=== PATIENT | female | born 1990 | race Caucasian/White ===

== ENCOUNTER 2019-04-10 21:49 | Emergency (ER) | payer OTHER ==
[~2019-04-10] VITALS: Ht 157.5 cm; Wt 59.9 kg
[2019-04-10 21:53] VITALS: BP 137/71
--- NOTE | 2019-04-10 21:56 | NUR ---
TO LOBBY A/W BED AMBULATORY
[2019-04-10 22:50] LABS: APPEARANCE,URINE CLEAR (CLEAR); BILIRUBIN,URINE NEGATIVE (NEGATIVE); BLOOD, URINE NEGATIVE (NEGATIVE); COLOR,URINE YELLOW (YELLOW); LEUKOCYTE ESTERASE ,URINE NEGATIVE (NEGATIVE); NITRITE, URINE NEGATIVE (NEGATIVE); UGLUCOSE NEGATIVE (NEGATIVE)
--- NOTE | 2019-04-10 22:52 | NUR ---
RETURNED FROM CT VIA WC TO LOBBY.
--- NOTE | 2019-04-10 23:03 | NUR ---
PT TAKEN TO BED 8
--- NOTE | 2019-04-10 23:03 | NUR ---
29 Y/O FEMALE BIB SELF RT FLANK PAIN, RADIATING TO HER ,NAUSEA FOR 3 DAYS. PAIN STARTS IN THE RIGHT UPPER BACK RADIATIN TO THE RIGHT FLANK TO THE RIGHT ABDOMINAL REGION. PALPATION IS TENDER TO TOUCH. FACIAL GRIMACING NOTED. BOWEL SOUNDS HEARD ON ALL FOUR QUADRANTS. PAIN IS A 6/10. PATIENT STATES," I WAS SEEN LAST WEEK HERE FOR GALLSTONES AND TOOK NORCO WITH SOME RELIEF." PATIENT IS ALSO AT THIS TIME. ERMD MADE AWARE OF STATUS. SIDE RAILSX1. WILL CONTINUE TO MONITOR. PMH: GALLSTONES RX: NORCO NKDA
[2019-04-10 23:49] LABS: BASOPHILS % (AUTO) 0.3 % (0.0-2.0); EOSINOPHILS # (AUTO) 0.2 K/uL (0-0.4); EOSINOPHILS % (AUTO) 2.9 % (0.0-4.0); HEMATOCRIT 44.7 % (36-48); HEMOGLOBIN 14.8 g/dL (12.0-16.0); LYMPHOCYTES % (AUTO) 32.6 % (20.5-51.1); MEAN CORPUSCULAR HEMOGLOBIN 31 pg (27-31); MEAN CORPUSCULAR HGB CONC 33 g/dL (33-37); MEAN CORPUSCULAR VOLUME 91.8 fL (80-94); MONOCYTES # (AUTO) 0.7 K/uL (0.8-1.0); MONOCYTES % (AUTO) 10.8 % (1.7-9.3); NEUTROPHILS # (AUTO) 3.3 K/uL (1.8-7.7); NEUTROPHILS % (AUTO) 53.4 % (42.2-75.2); PLATELET COUNT (AUTO) 152 K/uL (140-450); RED BLOOD CELL COUNT(AUTO) 4.86 MIL/uL (4.20-5.40); RED CELL DISTRIBUTION WIDTH 12.9 % (11.6-13.7); WHITE BLOOD COUNT (AUTO) 6.2 K/uL (4.8-10.8)
[2019-04-11 00:06] LABS: ANION GAP 13.6 (8-16); CARBON DIOXIDE 27.5 mmol/L (21-32); CREATININE 0.7 mg/dL (0.6-1.3); POTASSIUM 4.1 mmol/L (3.5-5.1)
[2019-04-11 00:09] LABS: ALBUMIN 3.8 g/dL (3.4-5.0); TOTAL BILIRUBIN 0.6 mg/dL (0.0-1.0)
[2019-04-11] MEDS ORDERED: oxyCODONE/APAP 5/325 MG 1 TAB TAB PO ONE (00:25)
[2019-04-11 01:01] VITALS: BP 130/51
== END 2019-04-11 01:01 | disposition home or self-care (01) ==
LOC: MED 21:49
DX: K80.20 Calculus of gallbladder without cholecystitis without obstruction (principal)
CPT/HCPCS: 36415; 74176; 76705; 80053; 81003; 81025; 83690; 85025; 99284; Q0092